=== PATIENT | male | born 1995 | race Caucasian/White ===

== ENCOUNTER 2022-05-12 12:43 | Emergency (ER) | payer OTHER, SELFPAY ==
--- NOTE | ~2022-05-12 | XR_ITS ---
EXAMINATION: XR RIBS, RIGHT, PA CHEST CLINICAL INFORMATION: Chest and rib pain. COMPARISON: Chest radiograph dated 03/23/2019. TECHNIQUE: 3 views of the right ribs were obtained along with a PA view of the chest. A skin marker overlies inferior right ribs. FINDINGS: Lungs are clear. No consolidation, pneumothorax, or pleural effusion. The cardiomediastinal silhouette and pulmonary vasculature are normal. Osseous structures are unremarkable. Ribs are intact. No fractures are identified. XR/XR ribs RT min 3V w CXR1V IMPRESSION: Unremarkable examination.
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
[2022-05-12 13:14] VITALS: BP 116/87; PULSE 96; RESP 16; TEMP 37.1; O2SAT 99; BMI 44.1
--- OUTSIDE RECORDS SUMMARY | 2022-05-12 13:55 | XMS_ITS | Continuity of Care Document ---
Author Name Unknown Organization [facility] ter Address [address] [place] [id number]- Care Team Providers Care Restorative Coordinator Name Role Phone Donald Sequeira MD Primary Care Physician Encounter [facility] Date(s): 03/23/19 - 03/23/[address] [address]- [facility] Discharge Disposition: A-D/C Walkout Attending Physician: Not on Staff, Attending MD Admitting Physician: Not on Staff, Admitting MD Referring Physician: Not on Staff, Referring MD Allergies, Adverse Reactions, Alerts Substance Reaction Severity Status NKA Active Medications No Known Medications Vital Signs Most recent to oldest [Reference Range]: 1 2 Weight 106.4 kg (03/23/19 1:12 AM) Oxygen Saturation [94-100 %] 100 % (03/23/19 3:54 AM) 98 % (03/23/19 1:12 AM) Pulse Rate [55-90 bpm] 72 bpm (03/23/19 3:54 AM) 85 bpm (03/23/19 1:12 AM) Blood Pressure [90-138/55-84 mm Hg] 134/ 97mm Hg (03/23/19 3:54 AM) 131/90mm Hg (03/23/19 1:12 AM) Respiratory Rate [16-30 br/min] 16 br/mi n (03/23/19 3:54 AM) 16 br/min (03/23/19 1:12 AM) Temperature [96.8-100.4 DegF] 98 DegF (03/23/19 3:54 AM) 98.1 DegF (03/23/19 1:12 AM) Mode of Delivery (Oxygen) Room air (03/23/19 3:54 AM) Room air (03/23/19 1:12 AM) Blood pressure sites Arm, right (03/23/19 3:54 AM) Arm, right (03/23/19 1:12 AM) Temperature Route Oral (03/23/19 3:54 AM) Oral (03/23/19 1:12 AM)
--- NOTE | 2022-05-12 14:18 | MHC.CARE ---
CARE Team was called to provide therapy information for Pt by Fernanda Salvador NP. CARE Team reviewed therapy information, discussed EAP information and psychology today.
== END 2022-05-12 14:15 | disposition home or self-care (01) ==
PROVIDERS: Emergency Provider Student in an Organized Health Care Education/Training Program
DX: S20.213A Contusion of bilateral front wall of thorax, initial encounter (principal); S83.91XA Sprain of unspecified site of right knee, initial encounter; R07.81 Pleurodynia; V43.52XA Car driver injured in collision with other type car in traffic accident, initial encounter; Y93.9 Activity, unspecified; Y92.410 Unspecified street and highway as the place of occurrence of the external cause; Y99.9 Unspecified external cause status
CPT/HCPCS: 71101; 73562; 99282; 99283

== ENCOUNTER 2023-01-18 09:02 | Inpatient (IN) | payer OTHER, SELFPAY ==
[2023-01-18] VITALS (7 sets, daily range): BP systolic 102–128; BP diastolic 58–83; PULSE 66–100; RESP 16–20; TEMP 36.1–36.6; O2SAT 95–99; BMI 30.6; BMI 30.7
--- NOTE | ~2023-01-18 | CT_ITS ---
EXAMINATION: CT ABDOMEN AND PELVIS WITH CONTRAST CLINICAL INFORMATION: Abdominal pain with significant surgical history COMPARISON: None available. TECHNIQUE: Multidetector volumetric images were obtained from the superior aspect of the liver through the pubic symphysis following administration 85 mL of Omnipaque 350 intravenous contrast. Sagittal and coronal reformatted images were obtained on the technologist's workstation. Oral contrast: No This CT examination was performed using dose optimization techniques as appropriate, variously including the following: *Automated exposure control *Adjustment of mA and/or kV according to patient size (this includes techniques or standardized protocols for targeted exams where dose is matched to indication/reason for exam; i.e. extremities or head) *Use of iterative reconstruction technique DLP: 776 mGy-cm FINDINGS: LUNG BASES: The visualized lung bases are unremarkable. Some minimal basilar atelectasis is present. LIVER, GALLBLADDER, AND BILIARY TREE: The liver is enlarged measuring 24.7 cm with decreased attenuation consistent with hepatic steatosis. No focal hepatic lesion or biliary ductal dilatation is present. The gallbladder is unremarkable with no evidence of radiopaque gallstones, gallbladder wall thickening, or obvious pericholecystic inflammatory changes. PANCREAS: Unremarkable. SPLEEN: Spleen is enlarged at 13.8 cm. ADRENAL GLANDS: Unremarkable. KIDNEYS AND URETERS: The kidneys are normal in size, shape, and attenuation. No hydronephrosis, hydroureter, or calculi seen. No perinephric stranding. BLADDER: Unremarkable. GASTROINTESTINAL TRACT: There is marked dilatation of small bowel loops seen with question of a transition point seen in the right right midabdomen just behind the anterior abdominal wall (3:41). The colon is decompressed. No evidence of appendicitis. ABDOMINAL. WALL: There is been prior surgery with a mid abdominal incision with marked atrophy of the rectus muscles. LYMPH NODES: No retroperitoneal lymphadenopathy. VASCULAR: Unremarkable. PELVIC VISCERA: The prostate and seminal vesicles are unremarkable. OSSEOUS STRUCTURES: Unremarkable. CT/CT abdomen pelvis w IV con IMPRESSION: 1. Small bowel obstruction with question of a transition point in the right midabdomen just behind the anterior abdominal wall. This is probably secondary to scarring/adhesion. 2. Enlarged fatty liver with mild splenomegaly. Fleischner guidelines were followed.
[2023-01-18] MEDS: Ondansetron ODT 4 MG TAB.RAPDIS TRANSLINGU (09:21)
--- NOTE | 2023-01-18 09:25 | ED_ITS ---
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 Patient states that he began having mid abdominal pain last night that is worsening with nausea and vomiting. Patient denies any dizziness, lightheadedness, fever, blurry vision, double vision, loss of vision, chest pain, difficulty breathing, shortness of breath, back pain, night sweats, pain with urination, increased urinary frequency, increased urinary urgency, blood in his urine or stool, syncope or a near syncopal episode, recent trauma or falls, bowel incontinence, bladder incontinence, bowel retention, bladder retention, or any other complaints at this time. Onset (ago): hour(s) Location: abdomen Severity: mild Severity scale (1-10): 4 Quality: aching and dull Pain Consistency: constant Relieving factors: none Exacerbating factors: none Associated symptoms: nausea/vomiting Treatments prior to arrival: none Related Data Allergies Allergy/AdvReac Type Severity Reaction Status Date / Time No Known Allergies Allergy Verified 01/18/23 09:15 [No Known Allergies*] Review of Systems 2 Constitutional: Constitutional: Reports no additional constitutional complaints, Denies chills, Denies fever(s) and Denies night sweats Eyes: Eyes: Reports no additional eye complaints, Denies blurry vision, Denies change in vision, Denies diplopia, Denies eye discharge, Denies loss of vision and Denies eye pain ENT: Denies dizziness Cardiovascular: Cardiovascular: Reports no additional cardiovascular complaints, Denies chest pain, Denies lightheadedness, Denies Loss of Consciousness and Denies dyspnea Respiratory: Respiratory: Reports no additional respiratory complaints and Denies dyspnea Gastrointestinal: Gastrointestinal: Reports no additional gastrointestinal complaints, Reports abdominal pain, Denies melena, Denies hematochezia, Denies change in bowel habits, Denies change in stool character, Reports nausea and Reports vomiting Genitourinary: Genitourinary: Reports no additional male genitourinary complaints, Denies hematuria, Denies oliguria, Denies difficulty urinating, Denies dysuria, Denies urinary frequency, Denies urinary hesitancy, Denies urinary incontinence and Denies urinary urgency Musculoskeletal: Musculoskeletal: Reports no additional musculoskeletal complaints, Denies numbness and Denies tingling Neurologic: Denies dizziness, Denies loss of vision, Denies numbness and Denies tingling Psychiatric: Psychiatric: Reports no additional psychiatric complaints Endocrine: Endocrine: Reports no additional endocrine complaints Hematologic/Lymphatic: Hematologic/Lymphatic: Reports no additional hematologic/lymphatic complaints Allergic/Immunologic: Allergic/Immunologic: Reports no additional allergic/immunologic complaints [facility] Past Medical History Attestation statement: The following information was validated with the patient. Source: old records reviewed and nursing notes reviewed Medical History (Updated 01/18/23 @ 14:09 by REGLA Cameron) History of gastroschisis Social History Social History Smoked in Last 30 Days: Yes Use of substances other than those prescribed or required for medical reasons: No Advance Directives: No Advance Directives Information Provided: No Physical Exam ED Vital Signs: Vital Signs - 24 hr 01/18/23 09:16 01/18/23 10:27 01/18/23 10:53 Temperature 97.6 F 97.8 F Pulse Rate 100 66 89 Respiratory Rate 18 16 17 Blood Pressure 117/80 128/79 Pulse Oximetry 98 98 Oxygen Delivery Method Room Air Room Air 01/18/23 12:38 Temperature 97.9 F Pulse Rate 100 Respiratory Rate 16 Blood Pressure 125/83 Pulse Oximetry 95 Oxygen Delivery Method Room Air BMI result Body Mass Index 30.6 Const General: cooperative, no acute distress, alert and awake Nutritional Appearance: well nourished Orientation/consciousness: patient oriented x3 Limitations: no limitations [facility] Head: Yes normal to inspection and Yes atraumatic Ears: hearing grossly normal bilaterally and external ears normal General nose exam: Normal external nose present, no nasal discharge noted and no epistaxis Face and sinus: Yes normal facial exam, No abrasion and No laceration Mouth: Normal oral and palatal mucosa present, no drooling and no muffled voice Eyes General: appearance normal, both eyes and all related structures Periorbital: periorbital findings normal Eyelids: Yes eyelids normal Conjunctivae: conjunctivae normal Pupils: Equal, round and reactive pupils present EOM: EOMs intact bilaterally Neck Neck: Yes normal visual inspection, Yes full ROM and Yes no lymphadenopathy Chest Chest palpation & inspection: normal inspection of the chest Resp Effort & Inspection: normal respiratory effort and able to speak in complete sentences GI Inspection: Yes normal to inspection Palpation (GI): Soft to palpation, not firm, Tenderness to palpation present (GI), no guarding and not rigid Neuro General: patient oriented x3 and moves all extremities Cranial nerves: Yes Equal, round and reactive pupils present Cognition (Neuro): normal cognition Motor exam (neuro): 5/5 motor strength present throughout Sensory Exam: Normal double simultaneous stimulation for sensation Coordination: [id number] test normal Extrem General: Yes normal to inspection, Yes full ROM and Yes capillary refill normal Psych Appearance: grossly normal Mental Status: mental status grossly normal Affect: normal affect Attitude: cooperative Thought process: Normal thought process present Thought content: Normal thought content present Insight: Good insight present (Psych) Medications Administered Discontinued Medications Generic Name Dose Route Start Last Admin Trade Name Freq PRN Reason Stop Dose Admin Albuterol Sulfate 1 puff 01/18/23 10:03 01/18/23 10:25 Albuterol Sulfate 90 Mcg 8 Gm Inhaler INHALE 01/18/23 10:04 1 puff ONCE ONE Administration Sodium Chloride 1,000 mls @ 999 mls/hr 01/18/23 09:30 01/18/23 10:56 Ns IV 01/18/23 10:30 Infused .Q1H1M THOMAS Infusion Iohexol 85 ml 01/18/23 10:42 01/18/23 10:42 Iohexol 350 Mg/Ml 100 Ml Infus..Btl IV 01/18/23 10:43 85 ml ONCE ONE Administration Metoclopramide HCl 10 mg 01/18/23 09:46 01/18/23 09:53 Metoclopramide Hcl 10 Mg/2 Ml Vial IVPUSH 01/18/23 09:47 10 mg ONCE ONE Administration Metoclopramide HCl 10 mg 01/18/23 12:39 01/18/23 12:41 Metoclopramide Hcl 10 Mg/2 Ml Vial IVPUSH 01/18/23 12:40 10 mg ONCE ONE Administration Morphine Sulfate 4 mg 01/18/23 12:21 01/18/23 12:34 Morphine Sulfate 4 Mg/Ml Cartridge IVPUSH 01/18/23 12:22 4 mg ONCE ONE Administration Protocol Ondansetron HCl 4 mg 01/18/23 09:15 01/18/23 09:21 Ondansetron Odt 4 Mg Tab.Rodrigo SAINI 01/18/23 09:16 4 mg ONCE ONE Administration Medical Decision Making Medical Decision Making [facility] Narrative: Patient is a 27 year old assigned male at 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 Patient's physical exam was as noted in the physical exam portion of this note. Patient's blood work showed an elevated WBC count of 20.2 but was otherwise unremarkable. Patient's CT abdomen pelvis showed a small bowel obstruction. Patient had multiple bouts of vomiting while in the department. I spoke to Dr. Jensen, the general surgeon, who agreed to admission. I explained my physical exam findings as well as all test results to the patient. I answered all questions asked by the patient. Patient verbalized agreement and understanding with this treatment plan and admission. Differential Diagnosis Differential Diagnoses: The differential diagnosis associated with the presentation includes Small bowel obstruction Abdominal pain COVID-19 Enteritis Gastroenteritis Admission/Observation Consideration of admission/observation: Escalation of care including admission/observation considered Patient admitted to surgical service. Consult Healthcare Provider Management of the patient was discussed with: Coater Operator (spoke to the general surgeon as noted in the MDM Rationale portion of this note.) Lab Data [facility] Lab Attestation statement: I reviewed the patient's lab results. My interpretation of these results are in the MDM Rationale portion of this note. 01/18/23 09:40 01/18/23 09:40 Labs: Lab Results 01/18/23 01/18/23 Range/Units 09:40 12:42 WBC 20.2 H (4.8-10.8) X10*3/uL RBC 6.34 H (4.60-5.80) X10*6/uL Hgb 17.3 (14.0-18.0) g/dl Hct 52.7 H (42.0-52.0) % MCV 83.1 (80.0-98.0) fL MCH 27.3 (27.0-33.0) pg MCHC 32.8 (31.0-36.0) g/dl RDW 13.6 (11.0-16.0) % Plt Count 306 (160-400) X10*3/uL MPV 10.2 (9.4-12.4) fL Immature Gran % (Auto) 0.8 H (0.0-0.4) % Neut % (Auto) 88.2 H (45-73) % Lymph % (Auto) 4.2 L (20-40) % Wayne % (Auto) 6.5 (2-11) % Eos % (Auto) 0.1 (0-4) % Baso % (Auto) 0.2 (0-2) % Lymph # (Auto) 0.9 L (1.2-4.9) X10*3/uL Wayne # (Auto) 1.3 H (0.1-1.2) X10*3/uL Eos # (Auto) 0.0 (0.0-0.4) X10*3/uL Baso # (Auto) 0.0 (0.0-0.2) X10*3/uL Abs Immat Gran (auto) 0.16 H (0.00-0.03) X10*3/uL Absolute Neuts (auto) 17.8 H (2.0-8.3) x10*3/uL Absolute Nucleated RBC 0.000 (0.0-0.012) X10*3/uL Nucleated RBC % (auto) 0.0 (0.0-0.2) /100WBC Sodium 140 (135-145) mmol/L Potassium 4.6 (3.3-5.1) mmol/L Chloride 102 (96-108) mmol/L Carbon Dioxide 28 (22-29) mmol/L Anion Gap 15 (12-20) BUN 10 (9-16) mg/dL Creatinine 0.96 (0.5-1.4) mg/dL Estim Creat Clear Calc 148.4 Estimated GFR > 60 Random Glucose 129 H (60-115) mg/dL Calcium 10.0 (8.4-10.2) mg/dL Total Bilirubin 0.5 (0.0-1.0) mg/dL AST 33 (5-37) U/L ALT 40 (0-40) U/L Alkaline Phosphatase 92 (39-117) U/L Total Protein 7.8 (6.5-8.0) g/dL Albumin 4.6 (3.5-5.0) g/dL Urine Color Yellow Urine Appearance Clear Urine pH 5.5 (5.0-9.0) Ur Specific [place] >= 1.030 H (1.005-1.025) Urine Protein Negative (Neg-Trace) mg/dL Urine Glucose (UA) Negative (Negative) mg/dL Urine Ketones Negative (Negative) mg/dL Urine Blood Negative (Negative) Urine Nitrite Negative (Negative) Ur Leukocyte Esterase Negative (Negative) Influenza Type A (PCR) NEGATIVE (Negative) Influenza Type B (PCR) NEGATIVE (Negative) RSV RNA Qual (PCR) NEGATIVE (Negative) SARS-CoV-2 RNA (RT-PCR) NEGATIVE (Negative) Independent Interpretation I performed an independent interpretation of an: CT Scan Interpretation: My interpretation is in agreement with the radiologist's impression of this imaging study. - EXAMINATION: CT ABDOMEN AND PELVIS WITH CONTRAST CLINICAL INFORMATION: Abdominal pain with significant surgical history COMPARISON: None available. TECHNIQUE: Multidetector volumetric images were obtained from the superior aspect of the liver through the pubic symphysis following administration 85 mL of Omnipaque 350 intravenous contrast. Sagittal and coronal reformatted images were obtained on the technologist's workstation. Oral contrast: No This CT examination was performed using dose optimization techniques as appropriate, variously including the following: *Automated exposure control *Adjustment of mA and/or kV according to patient size (this includes techniques or standardized protocols for targeted exams where dose is matched to indication/reason for exam; i.e. extremities or head) *Use of iterative reconstruction technique DLP: 776 mGy-cm FINDINGS: LUNG BASES: The visualized lung bases are unremarkable. Some minimal basilar atelectasis is present. LIVER, GALLBLADDER, AND BILIARY TREE: The liver is enlarged measuring 24.7 cm with decreased attenuation consistent with hepatic steatosis. No focal hepatic lesion or biliary ductal dilatation is present. The gallbladder is unremarkable with no evidence of radiopaque gallstones, gallbladder wall thickening, or obvious pericholecystic inflammatory changes. PANCREAS: Unremarkable. SPLEEN: Spleen is enlarged at 13.8 cm. ADRENAL GLANDS: Unremarkable. KIDNEYS AND URETERS: The kidneys are normal in size, shape, and attenuation. No hydronephrosis, hydroureter, or calculi seen. No perinephric stranding. BLADDER: Unremarkable. GASTROINTESTINAL TRACT: There is marked dilatation of small bowel loops seen with question of a transition point seen in the right right midabdomen just behind the anterior abdominal wall (3:41). The colon is decompressed. No evidence of appendicitis. ABDOMINAL. WALL: There is been prior surgery with a mid abdominal incision with marked atrophy of the rectus muscles. LYMPH NODES: No retroperitoneal lymphadenopathy. VASCULAR: Unremarkable. PELVIC VISCERA: The prostate and seminal vesicles are unremarkable. OSSEOUS STRUCTURES: Unremarkable. CT/CT abdomen pelvis w IV con IMPRESSION: 1. Small bowel obstruction with question of a transition point in the right midabdomen just behind the anterior abdominal wall. This is probably secondary to scarring/adhesion. 2. Enlarged fatty liver with mild splenomegaly. Fleischner guidelines were followed. Dictated By: Jonny Prince MD Signed By: Electronically signed by Jonny Prince MD 01/18/23 5946 Radiology Impression Discussion of test interpretation with radiology: I have reviewed the radiologist's reading. Critical Care Time Critical Care Time Critical Care Time: Yes Total Critical Care Time: 65 Attestation: I spent 65 minutes of Critical Care Time with this patient. This does not include time spent on separately reported billable procedures. Discharge Plan Discharge Clinical Impression: Small bowel obstruction, Abdominal pain Patient Disposition: Admitted As Inpatient
[2023-01-18 09:45] LABS: MANUAL DIFF FLAG NO
[2023-01-18 09:49] LABS: Basophils Percent Auto 0.2 % (0-2); Eosinophils Percent Auto 0.1 % (0-4); Hematocrit 52.7 % (42.0-52.0); Hemoglobin 17.3 g/dl (14.0-18.0); Imm Gran Abs Auto 0.16 X10*3/uL (0.00-0.03); Imm Gran Pct Auto 0.8 % (0.0-0.4); Lymphocytes Absolute Auto 0.9 X10*3/uL (1.2-4.9); Lymphocytes Percent Auto 4.2 % (20-40); Mean Corpuscular HGB Conc 32.8 g/dl (31.0-36.0); Mean Corpuscular Hemoglobin 27.3 pg (27.0-33.0); Mean Corpuscular Volume 83.1 fL (80.0-98.0); Mean Platelet Volume 10.2 fL (9.4-12.4); Monocytes Absolute Auto 1.3 X10*3/uL (0.1-1.2); Monocytes Percent Auto 6.5 % (2-11); Neutrophils Absolute Auto 17.8 x10*3/uL (2.0-8.3); Neutrophils Percent Auto 88.2 % (45-73); Platelet Count 306 X10*3/uL (160-400); Red Blood Count 6.34 X10*6/uL (4.60-5.80); Red Cell Distribution Width 13.6 % (11.0-16.0); White Blood Count 20.2 X10*3/uL (4.8-10.8)
[2023-01-18] MEDS: Metoclopramide HCl 10 MG/2 ML VIAL IVPUSH ×2 (09:53→12:41)
[2023-01-18] MEDS: 0.9 % Sodium Chloride 1,000 ML 999 ML IV (09:53)
[2023-01-18 10:05] LABS: Alanine Aminotransferase 40 U/L (0-40); Albumin Level 4.6 g/dL (3.5-5.0); Alkaline Phosphatase 92 U/L (39-117); Anion Gap 15 (12-20); Aspartate Amino Transferase 33 U/L (5-37); Bilirubin Total 0.5 mg/dL (0.0-1.0); Blood Urea Nitrogen 10 mg/dL (9-16); Carbon Dioxide 28 mmol/L (22-29); Chloride 102 mmol/L (96-108); Creatinine Clr Calc Pharmacy 148.4; Estimated Glomerular Filt Rate > 60; Glucose Random 129 mg/dL (60-115); Potassium 4.6 mmol/L (3.3-5.1); Sodium 140 mmol/L (135-145); Total Protein 7.8 g/dL (6.5-8.0)
[2023-01-18 10:25] LABS: Influenza A PCR NEGATIVE (Negative); Influenza B PCR NEGATIVE (Negative); Resp Syncy Virus RNA Qual PCR NEGATIVE (Negative); SARS COV2 PCR INHOUSE NEGATIVE (Negative)
[2023-01-18] MEDS: Albuterol Sulfate 90 MCG 8 GM INHALER 1 PUFF INHALE (10:25)
[2023-01-18] MEDS: iohexoL 350 MG/ML 100 ML INFUS..BTL 85 ML IV (10:42)
[2023-01-18] MEDS: Morphine Sulfate 4 MG/ML CARTRIDGE IVPUSH (12:34)
--- NOTE | 2023-01-18 12:34 | PC.NURSE ---
pt medicated per provider order.
[2023-01-18 12:56] LABS: Appearance Urine Clear; Color Urine Yellow; Glucose Urine UA Negative (Negative); Leukocyte Esterase Urine Negative (Negative); Nitrite Urine Negative (Negative); PH 5.5 (5.0-9.0); Specific Gravity - Urine >= 1.030 (1.005-1.025); Urine Blood Negative (Negative); Urine Ketones Negative (Negative); Urine Protein Negative (Neg-Trace)
--- NOTE | 2023-01-18 13:22 | PC.NURSE ---
DR. GUERRERO (SURGERY) AT BEDSIDE. PT AWARE OF PLAN OF CARE.
--- NOTE | 2023-01-18 13:35 | PC.NURSE ---
PT AWARE OF PLAN OF CARE FOR AMISSION TO HOSP.
--- NOTE | 2023-01-18 13:41 | P.HPGS_ITS ---
History of Present Illness History of Present Illness Date of Service: 01/18/23 <Jannette Costa PA-C - Last Filed: 01/18/23 14:02> 01/18/23 <Dhiraj Jensen MD - Last Filed: 01/18/23 14:02> Chief complaint: PSBO <Jannette Costa PA-C - Last Filed: 01/18/23 14:02> Narrative: Jarek Mcdowell is a 27 year old male with of history of gastroschisis repair as a child who presents with complaints of abdominal pain. He reports last night he developed acute onset of mid abdominal pain. The pain was sharp in nature and nonradiating. He took pepto bismol and ibuprofen and the pain resolved for a short period of time but returned. The pain is associated with nausea and multiple episodes of vomiting. He reports passing liquid stools and flatus. He denies sick contacts, recent travel, recent antibiotics. In the ED work up included CBC, BMP which was significant for a leukocytosis of 20.2. CT scan was performed which showed marked dilatation of small bowel loops with question of a transition point seen in the right right midabdomen. <Jannette Costa PA-C - Last Filed: 01/18/23 14:02> Review of Systems 2 Constitutional: Constitutional: Denies chills and Denies fever(s) < Jannette Costa PA-C - Last Filed: 01/18/23 14:02> ENT: Denies dizziness <Jannette Costa PA-C - Last Filed: 01/18/23 14:02> Cardiovascular: Cardiovascular: Denies chest pain and Denies dyspnea < Jannette Costa PA-C - Last Filed: 01/18/23 14:02> Respiratory: Respiratory: Denies dyspnea <AHSAN Broderick Last Filed: 01/18/23 14:02> Gastrointestinal: Gastrointestinal: Reports as per HPI, Denies melena, Denies constipation and Denies hematemesis <AHSAN Broderick Last Filed: 01/18/23 14:02> Genitourinary: Genitourinary: Denies hematuria and Denies dysuria < AHSAN Broderick Last Filed: 01/18/23 14:02> Integumentary/Breasts: Skin/Breast: Denies rash and Denies jaundice < Jannette Costa PA-C - Last Filed: 01/18/23 14:02> Neurologic: Denies dizziness <Jannette Costa PA-C - Last Filed: 01/18/23 14:02> [facility] Past Medical History Medical History: Medical History (Updated 01/18/23 @ 13:57 by Jannette Costa PA-C) History of gastroschisis <Jannette Costa PA-C - Last Filed: 01/18/23 14:02> Social History Social History: Social History Smoked in Last 30 Days: Yes Use of substances other than those prescribed or required for medical reasons: No Advance Directives: No Advance Directives Information Provided: No <Jannette Costa PA-C - Last Filed: 01/18/23 14:02> Meds Allergies/Adverse reactions: Allergies Allergy/AdvReac Type Severity Reaction Status Date / Time No Known Allergies Allergy Verified 01/18/23 09:15 [No Known Allergies*] <Jannette Costa PA-C - Last Filed: 01/18/23 14:02> Physical Exam 2 Vital Signs: Vital Signs: Last Vital Signs Temp 97.9 F 01/18/23 12:38 Pulse 100 01/18/23 12:38 Resp 16 01/18/23 12:38 BP 125/83 01/18/23 12:38 Pulse Ox 95 01/18/23 12:38 O2 Del Method Room Air 01/18/23 12:38 BMI result Body Mass Index 30.6 <AHSAN Broderick Last Filed: 01/18/23 14:02> Const: General: comfortable, no acute distress and alert <Jannette Costa PA-C - Last Filed: 01/18/23 14:02> Orientation/consciousness: patient oriented x3 <AHSAN Broderick Last Filed: 01/18/23 14:02> Resp: Effort & Inspection: normal respiratory effort <Jannette Costa PA-Kamar Henderson Last Filed: 01/18/23 14:02> GI: Inspection: Yes distended and Yes scar <Jannette MaloneyAHSAN davis Santiago Last Filed: 01/18/23 14:02> Palpation (GI): Soft to palpation, Tenderness to palpation present (GI) (mild tenderness centrally ), no guarding and not rigid <Jannette MaloneyAHSAN davis Santiago Last Filed: 01/18/23 14:02> Percussion: Yes normal to percussion <Jannette MaloneyARIS davisKamar Henderson Last Filed: 01/18/23 14:02> Abdomen image: 1. gastroschisis repair scar <Jannette MaloneyREGLA davisRobinson Henderson Filed: 01/18/23 14:02> Skin: General skin exam: no rashes or lesions noted <Jannette MaloneyREGLA davisRobinson Henderson Filed: 01/18/23 14:02> Neuro: General: patient oriented x3 and moves all extremities <Jannette ARIS CostaKamar Henderson Last Filed: 01/18/23 14:02> Results Results Labs: Short CBC 01/18/23 Range/Units 09:40 WBC 20.2 H (4.8-10.8) X10*3/uL Hgb 17.3 (14.0-18.0) g/dl Hct 52.7 H (42.0-52.0) % Plt Count 306 (160-400) X10*3/uL BMP 01/18/23 09:40 Sodium 140 Potassium 4.6 Chloride 102 Carbon Dioxide 28 BUN 10 Creatinine 0.96 Calcium 10.0 Liver Function 01/18/23 Range/Units 09:40 Total Bilirubin 0.5 (0.0-1.0) mg/dL AST 33 (5-37) U/L ALT 40 (0-40) U/L Alkaline Phosphatase 92 (39-117) U/L Albumin 4.6 (3.5-5.0) g/dL Urine 01/18/23 Range/Units 12:42 Urine Color Yellow Urine Appearance Clear Urine pH 5.5 (5.0-9.0) Ur Specific [place] >= 1.030 H (1.005-1.025) Urine Protein Negative (Neg-Trace) mg/dL Urine Glucose (UA) Negative (Negative) mg/dL <Jannette Costa PA-C - Last Filed: 01/18/23 14:02> Abdomen CT scan report/results: report reviewed and image reviewed <Jannette Costa PA-C - Last Filed: 01/18/23 14:02> Assessment and Plan (1) Partial small bowel obstruction: Status: Acute <Jannette Costa PA-C - Last Filed: 01/18/23 14:02> 27 year old male with history of gastroschisis repair who presented with complaints of acute onset of abdominal pain, nausea and vomiting with CT scan showing dilated small bowel loops with possible transition point. He will be admitted to the surgical service for further treatment of gastroenteritis vs PSBO. He however is having diarrhea and has air in his colon which goes against SBO. Will continue with supportive measures for now with bowel rest, IVF, PRN analgesics and antiemetics. Will obtain SBFT tomorrow if no improvement. Discussed potential need for NGT insertion if he continues to vomit. He is in agreement. All questions answered. <Jannette Costa PA-C - Last Filed: 01/18/23 14:02> Quality Stroke Does the patient have a stroke diagnosis?: No <Jannette Costa PA-C - Last Filed: 01/18/23 14:02> No <Dhiraj Jensen MD - Last Filed: 01/18/23 14:02> VTE Prior VTE?: No <Jannette Costa PA-C - Last Filed: 01/18/23 14:02> No <Dhiraj Jensen MD - Last Filed: 01/18/23 14:02> VTE Risk Level:: Medical - low <Jannette Costa PA-C - Last Filed: 01/18/23 14:02> VTE Device Contraindication: N/A - Device Ordered <Jannette Costa PA-C - Last Filed: 01/18/23 14:02> VTE Drug Contraindication: Treatment Not Indicated <Jannette Costa PA-C - Last Filed: 01/18/23 14:02> Procedures Date of Service Date of Service: 01/18/23 <Jannette Costa PA-C - Last Filed: 01/18/23 14:02> 01/18/23 <Dhiraj Jensen MD - Last Filed: 01/18/23 14:02>
[2023-01-18] MEDS: Lactated Ringers 1,000 ML 100 ML IVCONT ×2 (14:10→23:36)
--- NOTE | 2023-01-18 17:17 | PC.NURSE ---
floor was called again to come pickle maker patient to transport to room, protonix drip has not been started as we have a shortage of pumps and there is no tech to obtain.
[2023-01-19 03:27] VITALS: BP 110/58; PULSE 93; RESP 18; TEMP 36.6; O2SAT 97
[2023-01-19 06:19] LABS: MANUAL DIFF FLAG NO
[2023-01-19 06:40] LABS: Basophils Percent Auto 0.4 % (0-2); Eosinophils Absolute Auto 0.2 X10*3/uL (0.0-0.4); Eosinophils Percent Auto 2.8 % (0-4); Hematocrit 42.4 % (42.0-52.0); Hemoglobin 13.6 g/dl (14.0-18.0); Imm Gran Abs Auto 0.07 X10*3/uL (0.00-0.03); Lymphocytes Absolute Auto 1.4 X10*3/uL (1.2-4.9); Lymphocytes Percent Auto 19.7 % (20-40); Mean Corpuscular HGB Conc 32.1 g/dl (31.0-36.0); Mean Corpuscular Hemoglobin 27.5 pg (27.0-33.0); Mean Corpuscular Volume 85.8 fL (80.0-98.0); Mean Platelet Volume 10.9 fL (9.4-12.4); Monocytes Absolute Auto 0.8 X10*3/uL (0.1-1.2); Monocytes Percent Auto 11.2 % (2-11); Neutrophils Absolute Auto 4.6 x10*3/uL (2.0-8.3); Neutrophils Percent Auto 64.9 % (45-73); Platelet Count 232 X10*3/uL (160-400); Red Blood Count 4.94 X10*6/uL (4.60-5.80); Red Cell Distribution Width 13.9 % (11.0-16.0); White Blood Count 7.1 X10*3/uL (4.8-10.8)
[2023-01-19 07:51] VITALS: BP 110/58; PULSE 80; RESP 18; TEMP 36.6; O2SAT 97
--- NOTE | 2023-01-19 08:30 | PM.PNGS ---
Subjective Subjective Date of Service: 01/19/23 Interval history: Denies any abdominal pain. Last vomited yesterday. Has been passing continuous flatus, feels less bloated. Feels hungry. Physical Exam Vital Signs: Vital Signs: Last Vital Signs Temp 98 F 01/19/23 07:51 Pulse 80 01/19/23 07:51 Resp 18 01/19/23 07:51 BP 110/58 L 01/19/23 07:51 Pulse Ox 97 01/19/23 07:51 O2 Del Method Room Air 01/19/23 07:51 BMI result Body Mass Index 30.7 Const: General: comfortable, no acute distress and alert Orientation/consciousness: patient oriented x3 Resp: Effort & Inspection: normal respiratory effort GI: Inspection: No distended Palpation (GI): Soft to palpation, nontender, no guarding and not rigid Skin: General skin exam: no rashes or lesions noted Neuro: General: patient oriented x3 and moves all extremities Objective Data Active Medications Acetaminophen (Acetaminophen Supp 650 Mg Supp.Rect) 650 mg WI Q6H PRN PRN Reason: Pain, Mild (Pain Scale 1-3) Al Hydroxide/Mg Hydroxide (Magnesium Hydrox/Alum Hydrox 30 Ml Oral.Susp) 30 ml PO Q4H PRN PRN Reason: Heartburn/Nausea Hydromorphone HCl (Hydromorphone Hcl 1 Mg/Ml Syringe) 0.5 mg IVPUSH Q4H PRN; Protocol PRN Reason: Pain, Severe (Pain Scale 7-10) Lactated Ringer's (Lr) 1,000 mls @ 100 mls/hr IVCONT .Q10H [facility] Last Admin: 01/18/23 23:36 Dose: 100 mls/hr Documented By: TRENA Ketorolac Tromethamine (Ketorolac Tromethamine 30 Mg/Ml Vial) 30 mg IVPUSH Q6H PRN PRN Reason: Pain, Mild (Pain Scale 1-3) Stop: 01/23/23 13:37 Ondansetron HCl (Ondansetron Hcl 4 Mg/2 Ml Vial) 4 mg IVPUSH Q8H PRN PRN Reason: Nausea and Vomiting Sodium Chloride (0.9 % Sodium Chloride Flush 3 Ml Syringe) 3 ml IVFLUSH QSHIFT [facility] Last Admin: 01/19/23 08:00 Dose: Not Given Documented By: FILEMON Non-Admin Reason: IV Running Labs 01/19/23 05:34 01/18/23 09:40 Labs: Laboratory Results - last 24 hr 01/18/23 01/18/23 01/19/23 09:40 12:42 05:34 MCV 83.1 85.8 MCH 27.3 27.5 MCHC 32.8 32.1 RDW 13.6 13.9 Plt Count 306 232 MPV 10.2 10.9 Immature Gran % (Auto) 0.8 H 1.0 H Neut % (Auto) 88.2 H 64.9 Lymph % (Auto) 4.2 L 19.7 L [place] % (Auto) 6.5 11.2 H Eos % (Auto) 0.1 2.8 Baso % (Auto) 0.2 0.4 Lymph # (Auto) 0.9 L 1.4 [place] # (Auto) 1.3 H 0.8 Eos # (Auto) 0.0 0.2 Baso # (Auto) 0.0 0.0 Abs Immat Gran (auto) 0.16 H 0.07 H Absolute Neuts (auto) 17.8 H 4.6 Absolute Nucleated RBC 0.000 0.000 Nucleated RBC % (auto) 0.0 0.0 Anion Gap 15 Estim Creat Clear Calc 148.4 Estimated GFR > 60 Random Glucose 129 H Calcium 10.0 Total Bilirubin 0.5 AST 33 ALT 40 Alkaline Phosphatase 92 Total Protein 7.8 Albumin 4.6 Urine Color Yellow Urine Appearance Clear Urine pH 5.5 Ur Specific [place] >= 1.030 H Urine Protein Negative Urine Glucose (UA) Negative Urine Ketones Negative Urine Blood Negative Urine Nitrite Negative Ur Leukocyte Esterase Negative Influenza Type A (PCR) NEGATIVE Influenza Type B (PCR) NEGATIVE RSV RNA Qual (PCR) NEGATIVE SARS-CoV-2 RNA (RT-PCR) NEGATIVE Procedures Date of Service Date of Service: 01/19/23 Progress Note: A&P Assessment and plan (1) Partial small bowel obstruction: Status: Acute Plan Feels improved with complete resolution of symptoms, passing continuous flatus. Abd benign- nondistended, soft, nontender. Will therefore hold off on SBFT for now. Advance to clear liquids and further as tolerated. Patient comfortable with plan. WBC count has normalized- likely reactive from vomiting. Time Spent With Patient Time: Total time managing care of this patient today ____ minutes. Quality Stroke Does the patient have a stroke diagnosis?: No VTE Prior VTE?: No VTE Risk Level:: Medical - low VTE Device Contraindication: N/A - Device Ordered VTE Drug Contraindication: Treatment Not Indicated
[2023-01-19] MEDS: Lactated Ringers 1,000 ML 100 ML IVCONT (09:43)
--- NOTE | 2023-01-19 11:19 | MHC.CM.PN ---
pt is indepedent will not need servies dc plan same
--- NOTE | 2023-01-19 14:54 | MHC.CM.PN ---
pt dcd home no skilled servies
[2023-01-19 15:50] VITALS: PULSE 92; RESP 18; TEMP 36.4; O2SAT 99
--- NOTE | 2023-01-30 14:01 | PM.DS ---
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 He reports last night he developed acute onset of mid abdominal pain. The pain was sharp in nature and nonradiating. He took pepto bismol and ibuprofen and the pain resolved for a short period of time but returned. The pain is associated with nausea and multiple episodes of vomiting. He reports passing liquid stools and flatus. He denies sick contacts, recent travel, recent antibiotics. In the ED work up included CBC, BMP which was significant for a leukocytosis of 20.2. CT scan was performed which showed marked dilatation of small bowel loops with question of a transition point seen in the right right midabdomen. HOSPITAL COURSE: He was admitted to the surgical service for further treatment of gastroenteritis vs PSBO. Supportive measures were continued with bowel rest, IVF, PRN analgesics and antiemetics with plan for SBFT the following day. He had an uncomplicated hospital stay. He began passing flatus and his abdominal pain resolved. He was started on clear liquids and then advanced to a solid diet. He had a BM. He felt well and was tolerating a solid diet without any symptoms. He was discharged to home on 01/19/23. Status at Discharge Functional status at discharge: independent ambulation Overall status at discharge: patient is back to baseline Time Attestation Discharge coordination time: Less than 30 minutes Quality: Safe Use of Opioids Does Pt have an Active Cancer Diagnosis on the Problem List?: No Quality: Stroke Does the patient have a stroke diagnosis?: No Physical Exam Vital Signs: Vital Signs: Last Vital Signs Temp 97.6 F 01/19/23 15:50 Pulse 92 01/19/23 15:50 Resp 18 01/19/23 15:50 BP 110/58 L 01/19/23 07:51 Pulse Ox 99 01/19/23 15:50 O2 Del Method Room Air 01/19/23 15:50 BMI result Body Mass Index 30.7 Const: General: comfortable, no acute distress and alert Resp: Effort & Inspection: normal respiratory effort GI: Inspection: No distended Palpation (GI): Soft to palpation, nontender, no guarding and not rigid Skin: General skin exam: no rashes or lesions noted Discharge Plan Discharge Anticipated Discharge Date/Time: 01/19/23 17:36 Patient Disposition: Home, Self-Care Discharge Diagnosis: PSBO Referrals: Physician,Unknown J [Primary Care Provider] - 1 Week Discharge Medications: No Action No Known Home Meds Discharge Orders: Discharge Order (Routine); Ordered 01/19/23 Ordered By: Jannette Costa Diet: Advance to usual diet Activity on Discharge: As tolerated Stand Alone Forms: Patient Portal Discharge page Activity Restrictions/Additional Instructions: Follow up in office in a week. ([phone]) Call Your Doctor If: ? ? -Your temperature exceeds 101.5? F? ? ? -You experience excessive pain or swelling ? ? -You have an unexpected reaction to medication ? ? -You experience continued vomiting/nausea Care Plan Goals: Return to baseline health and resume normal activities following recovery period. Health Concerns: PSBO vs gastroenteritis Plan of Treatment: diet as tolerated follow up with PCP Assessment: IMPROVED Discharge Date/Time: 01/19/23 18:00
== END 2023-01-19 18:00 | disposition home or self-care (01) | DRG 390 ==
LOC: HO.ED 10:37 → HO.EDOVER 13:48 → HO.S3 15:08
PROVIDERS: Physician Assistant Medical; Admitting Provider Physician Assistant Surgical; Emergency Provider Emergency Medicine Emergency Medical Services; Visit Provider Physician Assistant Surgical
DX: K56.600 Partial intestinal obstruction, unspecified as to cause (principal); Z20.822 Contact with and (suspected) exposure to COVID-19
CPT/HCPCS: 0241U; 36415; 74177; 80053; 81003; 85025; 94640; 99285; J2270; J2765; J7120; Q9967

== ENCOUNTER → 2023-01-18 13:47 | Outpatient (BNV) | payer OTHER, SELFPAY | PROVIDERS: Admitting Provider Physician Assistant Surgical; Emergency Provider Emergency Medicine Emergency Medical Services; Visit Provider Physician Assistant Surgical | DX: K56.600 Partial intestinal obstruction, unspecified as to cause (principal) | CPT/HCPCS: 99222; 99238 ==

== ENCOUNTER 2024-04-03 15:47 | Emergency (ER) | payer OTHER, SELFPAY ==
--- NOTE | ~2024-04-03 | XR_ITS ---
EXAMINATION: XR CHEST CLINICAL INFORMATION: cough x 4 mos COMPARISON: 05/12/2022, 03/23/2019 TECHNIQUE: 2 views of the chest were obtained. FINDINGS: The cardiac, hilar, and mediastinal contours are normal. The lungs are clear bilaterally. There is no pneumothorax or pleural effusion. There is no focal osseous or soft tissue abnormality. XR/XR chest 2V IMPRESSION: Normal chest. Electronically signed by: Ricardo Gifford MD 04/03/2024 04:49 PM MITCH
[2024-04-03 16:07] VITALS: BP 135/93; PULSE 95; RESP 18; TEMP 36.8; O2SAT 97; BMI 31.9
--- NOTE | 2024-04-03 16:08 | ED_ITS ---
HPI - General Adult General Chief complaint: Upper Respiratory Symptoms Stated complaint: cough/headache Related Data Previous Rx's ?Medication ?Instructions ?Recorded budesonide-formoterol HFA 160 2 puff inhalation BID #10.2 grams 04/04/24 mcg-4.5 mcg/actuation aerosol inhaler Allergies Allergy/AdvReac Type Severity Reaction Status Date / Time No Known Allergies Allergy Verified 04/03/24 21:57 [No Known Allergies*] [facility] Past Medical History Medical History (Updated 04/04/24 @ 16:50 by Mariella Michaud NP) History of gastroschisis Social History Social History Household Members: Family Housing: Apartment Do you presently have visiting nurse or other home services: No Patient Tobacco Use Status: Never used Tobacco Smoked in Last 30 Days: No Use of substances other than those prescribed or required for medical reasons: Yes Substance Use Type: Marijuana Advance Directives: No Advance Directives Information Provided: Yes Do you have a plan to hurt others: No Plan service: No Physical Exam ED Vital Signs: BMI result Body Mass Index 31.9 Course Course Course Narrative: This is a rapid medical exam performed by Winston Michaud NP: Additional HPI, ROS, PE not included below will be deferred to primary provider. Patient is a 28-year-old male presenting with complaint of cough x 4 mos, headaches. Denies fevers. Using OTC cold medicine with little relief. Plan: viral serology, labs, cxr Medical Decision Making Lab Data 04/03/24 16:14 04/03/24 16:14 Labs: Lab Results 04/03/24 Range/Units 16:14 WBC 9.7 (4.8-10.8) X10*3/uL RBC 5.45 (4.60-5.80) X10*6/uL Hgb 15.5 (14.0-18.0) g/dl Hct 45.8 (42.0-52.0) % MCV 84.0 (80.0-98.0) fL MCH 28.4 (27.0-33.0) pg MCHC 33.8 (31.0-36.0) g/dl RDW 13.4 (11.0-16.0) % Plt Count 291 D (160-400) X10*3/uL MPV 10.2 (9.4-12.4) fL Immature Gran % (Auto) 0.8 H (0.0-0.4) % Neut % (Auto) 68.5 (45-73) % Lymph % (Auto) 15.5 L (20-40) % [place] % (Auto) 10.7 (2-11) % Eos % (Auto) 3.8 (0-4) % Baso % (Auto) 0.7 (0-2) % Lymph # (Auto) 1.5 (1.2-4.9) X10*3/uL [place] # (Auto) 1.0 (0.1-1.2) X10*3/uL Eos # (Auto) 0.4 (0.0-0.4) X10*3/uL Baso # (Auto) 0.1 (0.0-0.2) X10*3/uL Abs Immat Gran (auto) 0.08 H (0.00-0.03) X10*3/uL Absolute Neuts (auto) 6.6 (2.0-8.3) x10*3/uL Absolute Nucleated RBC 0.000 (0.0-0.012) X10*3/uL Nucleated RBC % (auto) 0.0 (0.0-0.2) /100WBC Sodium 142 (135-145) mmol/L Potassium 4.2 (3.3-5.1) mmol/L Chloride 104 (96-108) mmol/L Carbon Dioxide 28 (22-29) mmol/L Anion Gap 14 (12-20) BUN 13 (9-16) mg/dL Creatinine 0.99 (0.5-1.4) mg/dL Estim Creat Clear Calc 145.4 Estimated GFR > 60 Random Glucose 110 (60-115) mg/dL Calcium 9.3 D (8.4-10.2) mg/dL Total Bilirubin 0.4 (0.0-1.0) mg/dL AST 37 (5-37) U/L ALT 52 H (0-40) U/L Alkaline Phosphatase 97 (39-117) U/L Total Protein 8.0 (6.5-8.0) g/dL Albumin 4.6 (3.5-5.0) g/dL Influenza Type A (PCR) NEGATIVE (Negative) Influenza Type B (PCR) NEGATIVE (Negative) RSV RNA Qual (PCR) NEGATIVE (Negative) SARS-CoV-2 RNA (RT-PCR) NEGATIVE (Negative) Discharge Plan Discharge Clinical Impression: Persistent cough for 3 weeks or longer Patient Disposition: Left W/O Completing Treatment Prescriptions: No Action budesonide-formoterol 160-4.5 mcg/actuation HFA aerosol inhaler 2 puff inhalation BID Qty: 10.2 0RF Discharge Date/Time: 04/03/24 19:27
[2024-04-03 16:19] LABS: MANUAL DIFF FLAG NO
[2024-04-03 16:25] LABS: Basophils Absolute Auto 0.1 X10*3/uL (0.0-0.2); Basophils Percent Auto 0.7 % (0-2); Eosinophils Absolute Auto 0.4 X10*3/uL (0.0-0.4); Eosinophils Percent Auto 3.8 % (0-4); Hematocrit 45.8 % (42.0-52.0); Hemoglobin 15.5 g/dl (14.0-18.0); Imm Gran Abs Auto 0.08 X10*3/uL (0.00-0.03); Imm Gran Pct Auto 0.8 % (0.0-0.4); Lymphocytes Absolute Auto 1.5 X10*3/uL (1.2-4.9); Lymphocytes Percent Auto 15.5 % (20-40); Mean Corpuscular HGB Conc 33.8 g/dl (31.0-36.0); Mean Corpuscular Hemoglobin 28.4 pg (27.0-33.0); Mean Platelet Volume 10.2 fL (9.4-12.4); Monocytes Percent Auto 10.7 % (2-11); Neutrophils Absolute Auto 6.6 x10*3/uL (2.0-8.3); Neutrophils Percent Auto 68.5 % (45-73); Platelet Count 291 X10*3/uL (160-400); Red Blood Count 5.45 X10*6/uL (4.60-5.80); Red Cell Distribution Width 13.4 % (11.0-16.0); White Blood Count 9.7 X10*3/uL (4.8-10.8)
[2024-04-03 16:37] LABS: Alanine Aminotransferase 52 U/L (0-40); Albumin Level 4.6 g/dL (3.5-5.0); Alkaline Phosphatase 97 U/L (39-117); Anion Gap 14 (12-20); Aspartate Amino Transferase 37 U/L (5-37); Bilirubin Total 0.4 mg/dL (0.0-1.0); Blood Urea Nitrogen 13 mg/dL (9-16); Calcium 9.3 mg/dL (8.4-10.2); Carbon Dioxide 28 mmol/L (22-29); Chloride 104 mmol/L (96-108); Creatinine Clr Calc Pharmacy 145.4; Estimated Glomerular Filt Rate > 60; Glucose Random 110 mg/dL (60-115); Potassium 4.2 mmol/L (3.3-5.1); Sodium 142 mmol/L (135-145)
[2024-04-03 17:33] LABS: Influenza A PCR NEGATIVE (Negative); Influenza B PCR NEGATIVE (Negative); Resp Syncy Virus RNA Qual PCR NEGATIVE (Negative); SARS COV2 PCR INHOUSE NEGATIVE (Negative)
== END 2024-04-03 19:27 | disposition left against medical advice (07) ==
PROVIDERS: Registered Nurse Emergency; Emergency Provider Emergency Medicine
DX: R05.9 Cough, unspecified (principal); R51.9 Headache, unspecified; Z03.818 Encounter for observation for suspected exposure to other biological agents ruled out
CPT/HCPCS: 0241U; 71046; 80053; 85025; 99281; 99283

== ENCOUNTER → 2024-04-03 16:09 | Outpatient (BNV) | payer OTHER, SELFPAY | PROVIDERS: Visit Provider Radiology Diagnostic Radiology | DX: R05.9 Cough, unspecified (principal) | CPT/HCPCS: 71046 ==

== ENCOUNTER 2024-04-03 21:43 | Emergency (ER) | payer OTHER, SELFPAY ==
[2024-04-03 21:56] VITALS: BP 127/85; PULSE 99; RESP 16; TEMP 36.7; O2SAT 98; BMI 31.0
--- NOTE | 2024-04-04 03:23 | ED.GENADULT ---
HPI - General Adult General Chief complaint: Upper Respiratory Symptoms Stated complaint: coughing/headaches-was here earlier but left Time Seen by Provider: 04/04/24 03:23 History of Present Illness ED Provider: Akosua HERNANDEZ narrative: The patient is a 28-year-old male who has been coughing 4 months. He has had subjective fevers. He has had headaches. He has had a sore throat. He has no history of asthma. He is worried he might have pneumonia. He came to the emergency room earlier and left without completing treatment. He then returned. At his 1st visit he had had blood testing, a chest x-ray, and viral testing. Related Data Previous Rx's ?Medication ?Instructions ?Recorded budesonide-formoterol HFA 160 2 puff inhalation BID #10.2 grams 04/04/24 mcg-4.5 mcg/actuation aerosol inhaler Allergies Allergy/AdvReac Type Severity Reaction Status Date / Time No Known Allergies Allergy Verified 04/03/24 21:57 [No Known Allergies*] Review of Systems Review of Systems: Yes all other systems are reviewed and are negative [facility], [facility] Past Medical History Medical History (Updated 04/05/24 @ 00:00 by Sudeep Matthews) History of gastroschisis Social History Social History Household Members: Family Housing: Apartment Do you presently have visiting nurse or other home services: No Patient Tobacco Use Status: Never used Tobacco Smoked in Last 30 Days: No Use of substances other than those prescribed or required for medical reasons: Yes Substance Use Type: Marijuana Advance Directives: No Advance Directives Information Provided: Yes Do you have a plan to hurt others: No Plan service: No Physical Exam ED Vital Signs: Vital Signs - 24 hr 04/03/24 21:56 04/04/24 03:49 Temperature 98.0 F Pulse Rate 99 93 Respiratory Rate 16 18 Blood Pressure 127/85 Pulse Oximetry 98 Oxygen Delivery Method Room Air BMI result Body Mass Index 31.0 Const Other: the patient is awake and alert. He does not appear in overt distress. He is pleasant cooperative. Nontoxic demeanor. Orientation/consciousness: patient oriented x3 HENMT Other: Face is symmetrical. Mucous membranes moist. Posterior pharynx appears normal. Eyes General: appearance normal, both eyes and all related structures Neck Neck: Yes full ROM and Yes no lymphadenopathy Resp Other: No kemal wheezes but I felt the patient's air entry was less than I would have anticipated. The patient did not appear in respiratory distress. Cardio Rate: regular rate Rhythm: regular rhythm Heart sounds: S1 normal heart sound present and S2 normal heart sound present GI Other: Abdomen is soft and nontender Skin General skin exam: no rashes or lesions noted Neuro General: patient oriented x3, gait normal, tone normal, moves all extremities, no focal motor deficits and CN's II-XI intact bilaterally Extrem Other: no calf swelling or tenderness. No asymmetry. No edema. Medications Administered Discontinued Medications Generic Name Dose Route Start Last Admin Trade Name Freq PRN Reason Stop Dose Admin Albuterol/Ipratropium 3 ml 04/04/24 03:27 04/04/24 03:48 Albuterol/Iprat 2.5/0.5mg 3 Ml Ampul.Neb INHALE 04/04/24 03:28 3 ml ONCE ONE Administration Medical Decision Making Medical Decision Making [facility] Narrative: The patient is a not nearly healthy 28-year-old who has been having problems with cough for a few months. He has tested negative for influenza, RSV, and the flu. His strep test Is negative. His chest x-ray is negative. His CBC is unremarkable. The patient does not have a history of asthma but on his physical exam he seems to have less air movement than I would have anticipated in the seemed to be coughing a fair amount. It is possible he might have cough variant asthma. He was given a dose of a bronchodilator treatment with improvement in his symptoms. He will be discharged with a prescription for a budesonide formoterol inhaler which he should use regularly for a while. He should follow up with his PCP soon for further consideration of cough variant asthma. Lab Data Labs: Lab Results 04/04/24 Range/Units 03:31 S. pyogenes GrpA CHARLES Negative (Negative) Discharge Plan Discharge Clinical Impression: Persistent cough for 3 weeks or longer Patient Disposition: Home, Self-Care Additional Instructions: Your chest x-ray and blood testing are reassuring. You tested negative for COVID, the flu, and RSV. You also tested negative for strep throat. I have sent a prescription for an inhaler that I hope will help with your cough symptoms. Try using this 2 puffs 2 times a day. You can use it as often as 2 puffs every 4 hours as needed but I think 2 puffs 2 times a day might be a good start. Please make a follow up appointment with your regular doctor. Discuss whether you might have a phenomenon known as ?cough asthma. Return to the emergency room if significantly worse Prescriptions: New budesonide-formoterol 160-4.5 mcg/actuation HFA aerosol inhaler 2 puff inhalation BID Qty: 10.2 0RF Interventions: ED Discharge Assessment Last Done: 04/04/24 04:22 Discharge Date/Time: 04/04/24 04:24 Print Language: Mongolian
[2024-04-04 03:48] LABS: IDNOW Serial# 6674DD1D; Strep A Nucleic Acid Negative (Negative)
[2024-04-04] MEDS: Albuterol/Iprat 2.5/0.5MG 3 ML AMPUL.NEB INHALE (03:48)
[2024-04-04 03:49] VITALS: PULSE 93; RESP 18; O2SAT 99
[2024-04-04 04:22] VITALS: BP 118/68; PULSE 88; RESP 16; TEMP 37.2; O2SAT 97
== END 2024-04-04 04:24 | disposition home or self-care (01) ==
PROVIDERS: Emergency Provider Emergency Medicine
DX: R05.9 Cough, unspecified (principal); R51.9 Headache, unspecified; R50.9 Fever, unspecified; J02.9 Acute pharyngitis, unspecified
CPT/HCPCS: 87651; 94640; 99284